=== PATIENT | male | born 1990 | race Caucasian/White ===

== ENCOUNTER 2020-06-27 10:08 | Emergency (ER) | payer BC ==
[~2020-06-27] VITALS: Ht 198.1 cm; Wt 117.0 kg
[2020-06-27 11:16] LABS: Urine Bacteria NONE SEEN /hpf (None Seen); Urine Blood 3+ /uL (Negative); Urine Mucus FEW (None Seen); Urine Specific Gravity 1.026 (1.001-1.035); Urine WBC 8 /hpf (0 - 3)
[2020-06-27 13:10] VITALS: BP 139/86
[2020-06-27] MEDS ORDERED: TAMSULOSIN HYDROCHLORIDE 0.4 MG CAP PO ONE (13:15)
== END 2020-06-27 13:20 | disposition home or self-care (01) ==
LOC: ER 10:08
DX: N20.0 Calculus of kidney (principal); E86.0 Dehydration
CPT/HCPCS: 74176; 81001